=== PATIENT | male | born 1965 | race Two or more races ===

== ENCOUNTER 2016-04-12 20:49 | Emergency (ER) | payer SELFPAY ==
[2016-04-12] MEDS ORDERED: SODIUM CHLORIDE 0.9% 1,000 ML ONE (22:56)
[2016-04-12] MEDS ORDERED: ACETAMINOPHEN 500 MG TABLET ONE (22:56)
[2016-04-12] MEDS ORDERED: HALOPERIDOL LACTATE 5 MG/1 ML AMP ONE (22:56)
[2016-04-12] MEDS ORDERED: KETOROLAC TROMETHAMINE 30 MG/ML 1 ML VIAL ONE (22:56)
[2016-04-12] MEDS ORDERED: ONDANSETRON 4 MG/2ML 2 ML VIAL ONE (22:57)
[2016-04-12 23:04] LABS: ABSOLUTE NEUTROPHIL COUNT 4.3 K/mm3 (1.8-7.7); BASO % 0.2 % (0.2-1.0); EOS % 0.2 % (0.9-2.9); HEMATOCRIT 42.1 % (32.0-52.0); HEMOGLOBIN 14.4 gm/l (14.0-18.0); IMM NEUT% 0.4 % (0-1); LYMPH # 0.6 (1.0-4.8); LYMPH % 11.1 % (15-45); MEAN CELL VOLUME 83.2 fl (80.0-94.0); MEAN CORPUSCULAR HEMOGLOBIN 28.5 pg (27.0-31.0); MEAN CORPUSCULAR HGB CONC 34.2 g/dl (33.0-37.0); MEAN PLATELET VOLUME 10.1 fl (7.4-10.4); MONO # 0.5 (0.0-0.8); MONO % 8.9 % (4-12); NEUT % 79.2 % (43-75); PLATELET COUNT 189 K/mm3 (130-400); RED CELL DISTRIBUTION WIDTH 12.5 % (11.5-14.5)
[2016-04-12 23:15] LABS: ALB/GLOB RATIO 1.3 (>1.0)
[2016-04-13] MEDS ORDERED: HALOPERIDOL LACTATE 5 MG/1 ML AMP ONE (00:29)
--- NOTE | 2016-04-13 07:36 | RAD ---
Exam: Two-view chest COMPARISON: None INDICATION: Uncontrollable hiccups for 2 days. FINDINGS: PA and lateral views of the chest were obtained and demonstrate a normal cardiomediastinal silhouette. Lungs are well-inflated. There is no focal airspace disease or pleural effusion. Mild degenerative changes are seen within the thoracic spine and shoulders. IMPRESSION: No acute pulmonary process.
== END 2016-04-13 01:17 | disposition home or self-care (01) ==
LOC: ED 20:49
DX: J11.1 Influenza due to unidentified influenza virus with other respiratory manifestations (principal); R11.10 Vomiting, unspecified
CPT/HCPCS: 83690; 85025; 80053; 71020; 96375 ×2; 96376; 99284; 96374; 99283; J1630 ×2; J1885; A9270; J2405; J7030